=== PATIENT | male | born 1970 | race Caucasian/White ===

== ENCOUNTER → 2021-02-08 | Outpatient (CLI) | payer OTHER | END | disposition home or self-care (01) | LOC: OIH 10:14 | PROVIDERS: ATTEND Family Medicine | DX: Z13.6 Encounter for screening for cardiovascular disorders (principal) | CPT/HCPCS: 75571 ==

== ENCOUNTER → 2025-03-20 | Outpatient (CLI) | payer OTHER ==
--- NOTE | 2025-03-21 09:43 | HMCIMG ---
EXAM: CT Cardiac calcium scoring. CLINICAL HISTORY: Screening. TECHNIQUE: Thin collimated axial CT cardiac images were obtained. A CT scan is done according to ALARA (As Low As Reasonably Achievable). CONTRAST: None. COMPARISON: CT Cardiac calcium scoring. 02/08/2021. FINDINGS: Calcium Score: VESSEL Number of lesions Volume mm3 Equi. Mass/mg Calcium score LM 0 0 - 0.0 LAD 1 1.3 - 2.6 LCX 0 0 - 0.0 RCA 0 0 - 0.0 Total 1 1.3 - 2.6 IMPRESSION: The total calcium score is 2.6. New finding. 46th percentile. /[place]
== END | disposition home or self-care (01) ==
LOC: RAH 10:57
DX: Z13.6 Encounter for screening for cardiovascular disorders (principal)
CPT/HCPCS: 75571